=== PATIENT | male | born 1955 | race Caucasian/White ===

== ENCOUNTER 2017-03-18 20:32 | Emergency (ER) | payer OTHER ==
[~2017-03-18 20:32] MED LIST: ASPI1TAB69 PO; ATOR40TA16 PO; CYAN1LOZ BUCCAL; FOLI1TAB4 PO; METH2.5T PO; MISC-289; WARF-20 PO
[2017-03-18 20:38] VITALS: BP 133/72; PULSE 79; RESP 20; O2SAT 99
[2017-03-18] MEDS ORDERED: SODIUM CHLOR 0.9% 1000 ML INJ 1,000 ML IV SCH (20:50)
[2017-03-18] MEDS ORDERED: SODIUM CHLORIDE 0.9% FLUSH 10 ML FLUSH IV FLUSH PRN (21:00)
[2017-03-18] MEDS ORDERED: KETOROLAC TROMETHAMINE 30 MG/ML (IVP) VIAL IVP ONE (21:00)
[2017-03-18] MEDS ORDERED: NYSTAT/DIPHENHY/LIDO MOUTHWASH (Adult) 120ML SWISH-SWAL SCH (21:00)
[2017-03-18] MEDS ORDERED: ASPI81CH CHEW (21:12)
[2017-03-18] MEDS ORDERED: FOLI400T PO (21:12)
[2017-03-18] MEDS ORDERED: CYAN25005 PO (21:12)
[2017-03-18] MEDS ORDERED: METH2.5T PO (21:12)
[2017-03-18] MEDS ORDERED: LIPI20TA PO (21:12)
[2017-03-18] MEDS ORDERED: COUM2.5T PO (21:12)
[2017-03-18 21:15] LABS: AUTOMATED NEUTROPHIL # 7.6 TH/MM3 (1.8-7.7); BASOPHIL # 0.1 TH/MM3 (0-0.2); BASOPHIL % 0.5 % (0.0-2.0); EOSINOPHIL # 0.3 TH/MM3 (0-0.4); EOSINOPHIL % 3.4 % (0.0-4.0); HEMATOCRIT 32.5 % (39.0-51.0); HEMO FLAGS DIFF FINAL; LYMPH % 8.6 % (9.0-44.0); LYMPHOCYTE # 0.8 TH/MM3 (1.0-4.8); MEAN CELL VOLUME 85.5 FL (80.0-100.0); MEAN CORPUSCULAR HEMOGLOBIN 28.3 PG (27.0-34.0); MONO % 8.4 % (0.0-8.0); NEUT % 79.1 % (16.0-70.0); PLATELET COUNT 277 TH/MM3 (150-450); RED BLOOD COUNT 3.79 MIL/MM3 (4.50-5.90); RED CELL DISTRIBUTION WIDTH 14.2 % (11.6-17.2); WHITE BLOOD COUNT 9.6 TH/MM3 (4.0-11.0)
--- NOTE | 2017-03-18 21:19 | RADRPT ---
EXAM DATE/TIME: 03/18/2017 21:06 [facility] COMPARISON: CHEST SINGLE AP, September 23, 2015, 10:52. INDICATIONS : Coughing blood MEDICAL HISTORY : None. Hypotension. Mass on right lung. Kidney stone. Arthritis Lupus SURGICAL HISTORY : None. Cholecystectomy. Cardiac catheterization. Renal stent placement and removal Hernia repair. ENCOUNTER: Initial ACUITY: 4 - 6 months PAIN SCORE: 0/10 LOCATION: chest FINDINGS: A single view of the chest demonstrates the lungs to be symmetrically aerated without evidence of mas s, infiltrate or effusion. The cardiomediastinal contours are unremarkable. Osseous structures are intact. CONCLUSION: No acute disease. Leroy Melo MD on March 18, 2017 at 21:17 Board Certified Radiologist. This report was verified electronically.
--- NOTE | 2017-03-18 21:23 | PD ---
HPI Chief Complaint: GI Complaint Time Seen by Provider: 20:50 Travel History International Travel<30 days: No Contact w/Intl Traveler<30days: No Traveled to known affect area: No History of Present Illness HPI 62-year-old male presents to the emergency department via EMS after hemoptysis. Patient states she was recently seen at [facility] 2 days ago with sore throat and mass in the left anterior neck. Patient states he was placed on Levaquin 500 mg daily for a "pneumonia". Patient states he did not feel short of breath or cough because of something in his lung that felt more like he was choking in his throat from the mass in his neck. He states that the mass has been there "for some time". He has been losing weight over the past several weeks. The pain in his throat is a ache and burn for the patient. He has an obvious mass to the left anterior neck. He denies fever, chills, or other symptoms. Patient is on Coumadin for history of TIA. Patient states he felt that he was choking which made him cough which made him expectorate a large amount of what appeared to be "chunks of meat". He is not short of breath and denies chest pain or abdominal pain at this time. Patient states that [facility] wanted to admit him 2 days ago but he refused as he has a court appearance on this coming that he does not want to miss. He has no known drug allergies. PFSH Past Medical History Hx Anticoagulant Therapy: No Arthritis: Yes (RA) Asthma: No Blood Disorders: No Anxiety: No Depression: No Cancer: No Cardiac Catheterization: Yes Cardiovascular Problems: Yes (heart cath) Chemotherapy: No Chest Pain: Yes COPD: No Cerebrovascular Accident: No Diabetes: No Diminished Hearing: No Endocrine: No Gastrointestinal Disorders: No Glaucoma: No Genitourinary: No Hepatitis: No Hiatal Hernia: No Immune Disorder: No Kidney Stones: Yes (hx of gravel) Musculoskeletal: Yes Neurologic: No Psychiatric: No Reproductive: No Respiratory: Yes (has mass right lung) Integumentary: No Thyroid Disease: No Tetanus Vaccination: > 5 Years Influenza Vaccination: No Past Surgical History Abdominal Surgery: Yes (gall bladder removal) AICD: No Arteriovenous Shunt: No Cardiac Surgery: No Cholecystectomy: Yes Ear Surgery: No Endocrine Surgery: No Eye Surgery: No Genitourinary Surgery: Yes (stents removed bladder to kidney) Gynecologic Surgery: No Insulin Pump: No Joint Replacement: No Oral Surgery: No Pacemaker: No Thoracic Surgery: No Other Surgery: Yes (DOUBLE HERNIA REPAIR) Social History Alcohol Use: No Tobacco Use: No Substance Use: No Allergies-Medications (Allergen,Severity, Reaction): Coded Allergies: No Known Allergies (Verified , 08/02/16) Reported Meds & Prescriptions Reported Meds & Active Scripts Active Reported Aspirin 81 Mg Chew 81 Mg CHEW DAILY Vitamin B12 (Cyanocobalamin (Vitamin B-12)) 2,500 Mcg Tab.chew 5,000 Mcg PO DAILY Lipitor (Atorvastatin Calcium) 20 Mg Tab 20 Mg PO HS Folic Acid 0.4 Mg Tab 1 Mg PO DAILY EXCEPT FRI Methotrexate 2.5 Mg Tab 2.5 Mg PO Q7D Coumadin (Warfarin) 2.5 Mg Tab 2.5 Mg PO DAILY Review of Systems Except as stated in HPI: all other systems reviewed are Neg General / Constitutional: Positive: Weight Loss, No: Fever Eyes: No: Visual changes HENT: Positive: Sore Throat, No: Headaches, Rhinitis, Rhinorrhea, Congestion, Nosebleed, Neck Stiffness, Neck Pain, Ear Discharge, Earache Cardiovascular: No: Chest Pain or Discomfort Respiratory: Positive: Cough, No: Shortness of Breath, Wheezing, Sneezing Gastrointestinal: Positive: Loss of Appetite, No: Nausea, Vomiting, Diarrhea, Abdominal Pain Genitourinary: No: Dysuria Musculoskeletal: No: Pain Skin: No Rash Neurologic: No: Weakness Psychiatric: No: Depression Endocrine: No: Polydipsia Hematologic/Lymphatic: No: Easy Bruising Physical Exam Exam Limitations: Poor Historian, Uncooperative Narrative GENERAL: Patient appears cachectic but in no obvious distress. SKIN: Warm and dry. Normal color. Decreased turgor with mild tenting of the skin. HEAD: Atraumatic. Normocephalic. EYES: Pupils equal and round. No scleral icterus. No injection or drainage. ENT: No nasal bleeding or discharge. Mucous membranes pink and moist. Patient has a whitish firm growth in the left posterior throat with firm smooth tender growth in the left anterior neck consistent with large lymph node. There is not significant erythema. NECK: Trachea midline. Supple. 6 cm x 4 cm oblong firm tender growth in the left anterior neck.. CARDIOVASCULAR: Regular rate and rhythm. RESPIRATORY: No accessory muscle use. Clear to auscultation. Breath sounds equal bilaterally. GASTROINTESTINAL: Abdomen soft, non-tender, nondistended. Hepatic and splenic margins not palpable. MUSCULOSKELETAL: Extremities without clubbing, cyanosis, or edema. No obvious deformities. NEUROLOGICAL: Awake and alert. No obvious cranial nerve deficits. Motor grossly within normal limits. Five out of 5 muscle strength in the arms and legs. Normal speech. PSYCHIATRIC: Appropriate mood and affect; insight and judgment normal. Data Data Last Documented VS Vital Signs Date Time Temp Pulse Resp B/P (MAP) Pulse Ox O2 Delivery O2 Flow Rate FiO2 03/18/17 20:38 79 20 133/72 (92) 99 Orders Orders Complete Blood Count With Diff (03/18/17 20:50) Comprehensive Metabolic Panel (03/18/17 20:50) Lactic Acid (03/18/17 20:50) Prothrombin Time / Inr (Pt) (03/18/17 20:50) Act Partial Throm Time (Ptt) (03/18/17 20:50) Iv Access Insert/Monitor (03/18/17 20:50) Ecg Monitoring (03/18/17 20:50) Oximetry (03/18/17 20:50) NPO (03/18/17 20:50) Sodium Chlor 0.9% 1000 Ml Inj (Ns 1000 M (03/18/17 20:50) Sodium Chloride 0.9% Flush (Ns Flush) (03/18/17 21:00) Electrocardiogram (03/18/17 20:50) Chest, Single Ap (03/18/17 20:50) Ketorolac Inj (Toradol Inj) (03/18/17 21:00) Cjzt-Dark-Mlry Liq (Magic Mouthwash Adul (03/18/17 21:00) Ct Soft Tiss Neck W Iv Cont (03/18/17 ) Ct Thorax/ Chest W Iv Contrast (03/18/17 20:58) Ct Abd/Pel W Iv Contrast(Rout) (03/18/17 20:58) Type And Screen (03/18/17 21:13) Iohexol 350 Inj (Omnipaque 350 Inj) (03/18/17 21:58) Labs Laboratory Tests Test 03/18/17 20:54 White Blood Count 9.6 TH/MM3 Red Blood Count 3.79 MIL/MM3 Hemoglobin 10.7 GM/DL Hematocrit 32.5 % Mean Corpuscular Volume 85.5 FL Mean Corpuscular Hemoglobin 28.3 PG Mean Corpuscular Hemoglobin Concent 33.0 % Red Cell Distribution Width 14.2 % Platelet Count 277 TH/MM3 Mean Platelet Volume 7.1 FL Neutrophils (%) (Auto) 79.1 % Lymphocytes (%) (Auto) 8.6 % Monocytes (%) (Auto) 8.4 % Eosinophils (%) (Auto) 3.4 % Basophils (%) (Auto) 0.5 % Neutrophils # (Auto) 7.6 TH/MM3 Lymphocytes # (Auto) 0.8 TH/MM3 Monocytes # (Auto) 0.8 TH/MM3 Eosinophils # (Auto) 0.3 TH/MM3 Basophils # (Auto) 0.1 TH/MM3 CBC Comment DIFF FINAL Differential Comment Prothrombin Time 44.8 SEC Prothromb Time International Ratio 3.8 RATIO Activated Partial Thromboplast Time 45.8 SEC Blood Urea Nitrogen 51 MG/DL Creatinine 1.32 MG/DL Random Glucose 109 MG/DL Total Protein 6.3 GM/DL Albumin 2.7 GM/DL Calcium Level 9.1 MG/DL Alkaline Phosphatase 66 U/L Aspartate Amino Transf (AST/SGOT) 10 U/L Alanine Aminotransferase (ALT/SGPT) 11 U/L Total Bilirubin 0.6 MG/DL Sodium Level 141 MEQ/L Potassium Level 4.4 MEQ/L Chloride Level 110 MEQ/L Carbon Dioxide Level 27.0 MEQ/L Anion Gap 4 MEQ/L Estimat Glomerular Filtration Rate 55 ML/MIN MDM Medical Decision Making Medical Screen Exam Complete: Yes Emergency Medical Condition: Yes Medical Record Reviewed: Yes Differential Diagnosis Neck abscess. Neck tumor. Pneumonia. Stomach cancer. Hemoptysis. Narrative Course Patient is felt to be medically stable at time of exam. Labs ordered including CBC, CMP, PT PTT and INR, and lactic acid. Type and screen is ordered. EKG is ordered. Chest x-ray is ordered. CT of the soft tissues of the neck with IV contrast as well as CT of the abdomen and pelvis with IV contrast and CT of thorax with IV contrast was ordered. Patient is given a bolus of 1000 mL's normal saline as well as ketorolac 30 mg IV 1 and Magic mouthwash 10 mL was swish and swallow for throat pain. Patient is discussed with Dr. Montgomery who sees the patient as well. CBC shows mild anemia of 10.7 hemoglobin with a hematocrit of 32.5. There is no significant leukocytosis. CMP significant for chloride of 110, anion gap of 4, BUN of 51, creatinine of 1.32, GFR 55, random glucose 109, AST is 10, ALT 11, protein is 6.3, and albumin is 2.7. Alkaline phosphatase is normal at 66. Coagulation studies show a PT of 44.8, and INR 3.8. APTT is 45.8. CT shows a 2 cm x 2.5 cm mass at the base of the left tongue to the oropharynx, as well as a tumor in the left anterior lymph node measuring 2.7 x 3.4 cm. This is discussed with the patient. Findings and labs are discussed with the patient and it is recommended that he stay and be admitted with consult to Dr. Holden of the ear nose and throat doctor pianos and organs salesperson. Call was placed to Dr. Holden at 2300 hrs. The patient was discussed with him, but based on the patient's history is concerned about this being a sentinel bleed in the throat, and he recommended that the patient be transferred to a hospital with an interventional radiologist who couldn't go in and cauterize this lesion prior to an arterial bleed from the throat. This information was passed along to Dr. Montgomery. 2300 hrs. patient care is assumed by Dr. Montgomery who will determine patient's treatment course at this time. Condition: Stable Cuate Childs Mar 18, 2017 21:23
[2017-03-18 21:24] LABS: APTT (PATIENT) 45.8 SEC (24.3-30.1); INTERNATIONAL NORMALIZED RATIO 3.8 RATIO; PROTHROMBIN TIME - PATIENT 44.8 SEC (9.8-11.6)
[2017-03-18 21:25] LABS: ANION GAP 4 MEQ/L (5-15); AST (GOT) 10 U/L (15-37); BLOOD UREA NITROGEN 51 MG/DL (7-18); CHLORIDE 110 MEQ/L (98-107); GLOMERULAR FILTRATION RATE 55 ML/MIN (>89); POTASSIUM 4.4 MEQ/L (3.5-5.1); SODIUM (NA) 141 MEQ/L (136-145)
[2017-03-18 21:28] LABS: ALKALINE PHOSPHATASE 66 U/L (45-117); ALT (GPT) 11 U/L (12-78); TOTAL BILIRUBIN ADULT 0.6 MG/DL (0.2-1.0)
[2017-03-18] MEDS ORDERED: IOHEXOL 350 MG/ML 10 ML VIAL (for RAD DIAG) IVCONTRAST ONE (21:58)
--- NOTE | 2017-03-18 22:12 | RADRPT ---
EXAM DATE/TIME: 03/18/2017 21:48 [facility] COMPARISON: No previous studies available for comparison. INDICATIONS : Left neck mass. IV CONTRAST: 30 cc Omnipaque 350 (iohexol) IV RADIATION DOSE: 13.04 CTDIvol (mGy) MEDICAL HISTORY : Cardiovascular disease. Hypertension. Rheumatoid arthritis. SURGICAL HISTORY : Cholecystectomy. ENCOUNTER: Initial ACUITY: 1 day PAIN SCALE: 6/10 LOCATION: Left neck TECHNIQUE: Volumetric scanning of the neck was performed. Using automated exposure control and adjustment of th e mA and/or kV according to patient size, radiation dose was kept as low as reasonably achievable to obtain optimal diagnostic quality images. DICOM format image data is available electronically for r eview and comparison. FINDINGS: NASOPHARYNX: The nasopharyngeal airway has a normal configuration. No mucosal thickening or mass is seen. OROPHARYNX: There is an ill-defined approximate 2.5 x 2 cm mass in the left side of the oropharynx along the late ral pharynx. There is mass effect on the airway which is deviated to the right. The mass extends from the base of the tongue to the posterior pharyngeal wall and the margins are not well-defined. There is no calcifications in the mass. LARYNX: The supraglottic, glottic, and infraglottic structures are intact. PARAPHARYNGEAL: The parapharyngeal space is intact. SALIVARY GLANDS: The parotid and submandibular glands are intact. LYMPH NODES: There is a large chronic appearing isaiah mass in the left cervical chain measuring up to 3.7 x 3.1 cm in diameter. This accounts for the palpable mass. THYROID: Homogeneous enhancement without evidence of nodule. BONES: Unremarkable. CONCLUSION: 1. The palpable mass corresponds to a large necrotic left cervical chain node. 2. 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 Leroy Melo MD on March 18, 2017 at 22:02 Board Certified Radiologist. This report was verified electronically.
--- NOTE | 2017-03-18 22:16 | RADRPT ---
EXAM DATE/TIME: 03/18/2017 21:53 [facility] COMPARISON: CT ABDOMEN & PELVIS W CONTRAST, July 03, 2013, 8:24. INDICATIONS : Vomiting blood x 3 days. Left neck mass and newly diagnosed apparent head and neck tumor on neck CT. IV CONTRAST: 67 cc Omnipaque 350 (iohexol) IV ; Cumulative dose for multiple exams. ORAL CONTRAST: No oral contrast ingested. RADIATION DOSE: 4.72 CTDIvol (mGy) ; Combined studies - Thorax/Abdomen/Pelvis MEDICAL HISTORY : Cardiovascular disease. Hypertension. Rheumatoid arthritis. SURGICAL HISTORY : Cholecystectomy. ENCOUNTER: Initial ACUITY: 1 day PAIN SCALE: 4/10 LOCATION: Bilateral abdomen TECHNIQUE: Volumetric scanning of the abdomen and pelvis was performed. Using automated exposure control and ad justment of the mA and/or kV according to patient size, radiation dose was kept as low as reasonably achievable to obtain optimal diagnostic quality images. DICOM format image data is available electro nically for review and comparison. FINDINGS: LOWER LUNGS: There is patchy opacity in the anterior right lung base. Please see thorax CT from this date for furt her details. LIVER: Homogeneous density without lesion. There is no dilation of the biliary tree. Status post cholecyste ctomy. SPLEEN: Normal size without lesion. PANCREAS: Within normal limits. KIDNEYS: Normal in size and shape. There is no solid mass, stone or hydronephrosis. There are multiple small apparent bilateral renal cysts again noted. ADRENAL GLANDS: Within normal limits. VASCULAR: There is no aortic aneurysm. BOWEL/MESENTERY: No oral contrast was given limiting the sensitivity of the exam. The stomach, small bowel, and colon demonstrate no acute abnormality. There is no free intraperitoneal air or fluid. ABDOMINAL WALL: Within normal limits. RETROPERITONEUM: There is no lymphadenopathy. BLADDER: No wall thickening or mass. REPRODUCTIVE: Within normal limits. INGUINAL: There is no lymphadenopathy or hernia. There are multiple surgical clips and andrew in the right ing uinal region. MUSCULOSKELETAL: Within normal limits for patient age. CONCLUSION: 1. No evidence of metastatic disease. 2. Small simple appearing cysts in the kidneys. 3. Status post cholecystectomy. 4. Unremarkable bowel gas pattern. Leroy Melo MD on March 18, 2017 at 22:11 Board Certified Radiologist. This report was verified electronically.
--- NOTE | 2017-03-18 22:22 | RADRPT ---
EXAM DATE/TIME: 03/18/2017 21:53 [facility] COMPARISON: CHEST SINGLE AP, March 18, 2017, 21:06. CT THORAX W CONTRAST, July 04, 2013, 16:10. INDICATIONS : Patient with left-sided neck mass and apparent newly diagnosed head and neck cancer on CT. Patient is coughing up blood for 3 days.. IV CONTRAST: 67 cc Omnipaque 350 (iohexol) IV ; Cumulative dose for multiple exams. RADIATION DOSE: 4.72 CTDIvol (mGy) ; Combined studies - Thorax/Abdomen/Pelvis MEDICAL HISTORY : Cardiovascular disease. Hypertension. Rheumatoid arthritis. SURGICAL HISTORY : Cholecystectomy. ENCOUNTER: Initial ACUITY: 1 day PAIN SCALE: 0/10 LOCATION: chest TECHNIQUE: Volumetric scanning of the chest was performed. Using automated exposure control and adjustment of t mA and/or kV according to patient size, radiation dose was kept as low as reasonably achievable to obtain optimal diagnostic quality images. DICOM format image data is available electronically for review and comparison. Follow-up recommendations for detected pulmonary nodules are based at a minimum on nodule size and pa tient risk factors according to Fleischner Society Guidelines. FINDINGS: LUNGS: There is no pneumothorax. There is a stable noncalcified pulmonary nodule in the right upper lobe mary kay suring approximately 8 mm. There is new bronchiectasis in the right lower lobe and right middle lobe with new reticular nodular opacities in both these regions. There is a larger noncalcified nodule in the anterior right lung base measuring approximately by 8 mm. PLEURA: There is no pleural thickening or pleural effusion. MEDIASTINUM: The heart and great vessels demonstrate no acute abnormality. There is no hilar lymphadenopathy. The re are reactive appearing pretracheal and periaortic lymph nodes. AXILLAE: Within normal limits. No lymphadenopathy. SKELETAL: Within normal limits for patient age. MISCELLANEOUS: The visualized upper abdominal organs demonstrate no acute abnormality. CONCLUSION: 1. New bronchiectasis in the right middle lobe and right lower lobe with mild reticular nodule opacit ies which may be infectious or inflammatory. There is a larger 8mm noncalcified nodule now noted in t he right middle lobe which is also new and more nonspecific. 2. Stable 8mm nodule in the right upper lobe which is benign. 3. Reactive appearing pretracheal and periaortic lymph nodes. The findings described above include a newly detected solid pulmonary nodule of 6-8 mm average diamet er. Guidelines from the Fleischner Society for the follow-up and management of newly detected indeter minate pulmonary nodules in persons >34 years old depend on nodule size (average of length and width) and underlying risk factors (including smoking and other risk factors). Please consider the followi ng recommendations after clinical assessment of risk factors. For 6-8 mm nodules: In low risk patients, initial follow-up CT at 6-12 months, then 18-24 months if no change. In high r isk patients, initial follow-up CT at 3-6 months, then 9-12 and 24 months if no change. Leroy Melo MD on March 18, 2017 at 22:15 Board Certified Radiologist. This report was verified electronically.
--- NOTE | 2017-03-18 23:43 | PD ---
Physical Exam Date Seen by Provider: Mar 18, 2017 Time Seen by Provider: 22:50 Narrative GENERAL: Well-developed thin male in no acute distress no respiratory distress SKIN: Warm and dry. HEAD: Normocephalic. EYES: No scleral icterus. No injection or drainage. ENT: Mucous membranes moist large mass identified in the left posterior pharynx, no significant erythema, smooth not irregular, no visible thrombus and no active bleeding; airway is patent NECK: Supple, trachea midline. No JVD left lateral anterior cervical chain lymphadenopathy. CARDIOVASCULAR: Regular rate and rhythm without murmurs, gallops, or rubs. RESPIRATORY: Breath sounds equal bilaterally. No accessory muscle use. Data Data Last Documented VS Vital Signs Date Time Temp Pulse Resp B/P (MAP) Pulse Ox O2 Delivery O2 Flow Rate FiO2 03/19/17 00:29 17 100 03/19/17 00:28 82 Orders Orders Complete Blood Count With Diff (03/18/17 20:50) Comprehensive Metabolic Panel (03/18/17 20:50) Lactic Acid (03/18/17 20:50) Prothrombin Time / Inr (Pt) (03/18/17 20:50) Act Partial Throm Time (Ptt) (03/18/17 20:50) Iv Access Insert/Monitor (03/18/17 20:50) Ecg Monitoring (03/18/17 20:50) Oximetry (03/18/17 20:50) NPO (03/18/17 20:50) Sodium Chlor 0.9% 1000 Ml Inj (Ns 1000 M (03/18/17 20:50) Sodium Chloride 0.9% Flush (Ns Flush) (03/18/17 21:00) Electrocardiogram (03/18/17 20:50) Chest, Single Ap (03/18/17 20:50) Ketorolac Inj (Toradol Inj) (03/18/17 21:00) Oyvw-Evlv-Jcci Liq (Magic Mouthwash Adul (03/18/17 21:00) Ct Soft Tiss Neck W Iv Cont (03/18/17 ) Ct Thorax/ Chest W Iv Contrast (03/18/17 20:58) Ct Abd/Pel W Iv Contrast(Rout) (03/18/17 20:58) Type And Screen (03/18/17 21:13) Iohexol 350 Inj (Omnipaque 350 Inj) (03/18/17 21:58) Radiology Film Requests (03/18/17 ) Blood Product Administration (03/18/17 23:31) Sodium Chlor 0.9% 250 Ml Inj (Ns 250 Ml (03/18/17 23:45) Phytonadione Inj (Vitamin K Inj) (03/18/17 23:45) Fresh Frozen Plasma (Ffp) (03/18/17 23:51) Labs Laboratory Tests Test 03/18/17 20:54 03/18/17 23:50 White Blood Count 9.6 TH/MM3 Red Blood Count 3.79 MIL/MM3 Hemoglobin 10.7 GM/DL Hematocrit 32.5 % Mean Corpuscular Volume 85.5 FL Mean Corpuscular Hemoglobin 28.3 PG Mean Corpuscular Hemoglobin Concent 33.0 % Red Cell Distribution Width 14.2 % Platelet Count 277 TH/MM3 Mean Platelet Volume 7.1 FL Neutrophils (%) (Auto) 79.1 % Lymphocytes (%) (Auto) 8.6 % Monocytes (%) (Auto) 8.4 % Eosinophils (%) (Auto) 3.4 % Basophils (%) (Auto) 0.5 % Neutrophils # (Auto) 7.6 TH/MM3 Lymphocytes # (Auto) 0.8 TH/MM3 Monocytes # (Auto) 0.8 TH/MM3 Eosinophils # (Auto) 0.3 TH/MM3 Basophils # (Auto) 0.1 TH/MM3 CBC Comment DIFF FINAL Differential Comment Prothrombin Time 44.8 SEC Prothromb Time International Ratio 3.8 RATIO Activated Partial Thromboplast Time 45.8 SEC Blood Urea Nitrogen 51 MG/DL Creatinine 1.32 MG/DL Random Glucose 109 MG/DL Total Protein 6.3 GM/DL Albumin 2.7 GM/DL Calcium Level 9.1 MG/DL Alkaline Phosphatase 66 U/L Aspartate Amino Transf (AST/SGOT) 10 U/L Alanine Aminotransferase (ALT/SGPT) 11 U/L Total Bilirubin 0.6 MG/DL Sodium Level 141 MEQ/L Potassium Level 4.4 MEQ/L Chloride Level 110 MEQ/L Carbon Dioxide Level 27.0 MEQ/L Anion Gap 4 MEQ/L Estimat Glomerular Filtration Rate 55 ML/MIN Lactic Acid Level 0.8 mmol/L [facility] Medical Record Reviewed: Yes Supervised Visit with LESTER: Yes Interpretation(s) INR: 3.[address] 03/18/172057 Signed Impressions: Service Date/Time: Saturday, March 18, 2017 21:53 - CONCLUSION: 1. New bronchiectasis in the right middle lobe and right lower lobe with mild reticular nodule opacities which may be infectious or inflammatory. There is a larger 8mm noncalcified nodule now noted in the right middle lobe which is also new and more nonspecific. 2. Stable 8mm nodule in the right upper lobe which is benign. 3. Reactive appearing pretracheal and periaortic lymph nodes. The findings described above include a newly detected solid pulmonary nodule of 6-8 mm average diameter. Guidelines from the [employer] Society for the follow-up and management of newly detected indeterminate pulmonary nodules in persons >34 years old depend on nodule size (average of length and width) and underlying risk factors (including smoking and other risk factors). Please consider the following recommendations after clinical assessment of risk factors. For 6-8 mm nodules: In low risk patients, initial follow-up CT at 6-12 months, then 18- 24 months if no change. In high risk patients, initial follow-up CT at 3-6 months , then 9-12 and 24 months if no change. Leroy Melo MD Abdomen/Pelvis CT 03/18/172057 Signed Impressions: Service Date/Time: Saturday, March 18, 2017 21:53 - CONCLUSION: 1. No evidence of metastatic disease. 2. Small simple appearing cysts in the kidneys. 3. Status post cholecystectomy. 4. Unremarkable bowel gas pattern. Leroy Melo MD Chest X-Ray 03/18/172049 Signed Impressions: Service Date/Time: Saturday, March 18, 2017 21:06 - CONCLUSION: No acute disease. Leroy Melo MD Neck CT 03/18/17 0000 Signed Impressions: Service Date/Time: Saturday, March 18, 2017 21:48 - CONCLUSION: 1. The palpable mass corresponds to a large necrotic left cervical chain node. 2. Ill-defined mass in the left side of the oral pharynx most characteristic of a primary head and neck tumor. Leroy Melo MD CBC & BMP Diagram 03/18/17 20:54 Total Protein 6.3 L, Albumin 2.7 L, Calcium Level 9.1, Alkaline Phosphatase 66, Aspartate Amino Transf (AST/SGOT) 10 L, Alanine Aminotransferase (ALT/SGPT) 11 L , Total Bilirubin 0.6 Vital Signs Date Time Temp Pulse Resp B/P (MAP) Pulse Ox O2 Delivery O2 Flow Rate FiO2 03/19/17 00:29 17 100 03/19/17 00:28 82 123/68 (86) 121/59 (79) 154/81 (105) 03/18/17 20:38 79 20 133/72 (92) 99 Differential Diagnosis Mass, abscess, coagulopathy Narrative Course 62-year-old male on Coumadin therapy for history of TIA with 1 month of coughing up blood and history of previous tobacco use of chewing tobacco was initially seen at for the hospital on late Sunday evening and diagnosed at that time with 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 No active bleeding at this time. With stable range vital signs initial hemoglobin of 10.7 and INR of 3.8 on Sunday INR was 2.9. No bleeding; last coumadin 7 PM Sunday discussed with Dr Holden --- send to [facility] --unable to manage/ bx w / IR here Patient and spouse aware of recommendation; agree to transfer ---transfer confirmed with ENT Dr Holden at [facility] Physician Communication Physician Communication discussed with Dr Holden send to [facility] for sentinel bleed; discussed with Dr Holden --[facility] will accept in transfer Diagnosis Primary Impression: Oropharyngeal mass Additional Impressions: Bleeding on Coumadin H/O: CVA (cerebrovascular accident) Disposition: 70 TRANSFER TO OTHER FACILITY ([facility] ENT Dr Holden) Condition: Stable Pascale Montgomery MD Mar 18, 2017 23:43
[2017-03-18] MEDS ORDERED: PHYTONADIONE 10 MG/ML VIAL SQ ONE (23:45)
[2017-03-18] MEDS ORDERED: SODIUM CHLOR 0.9% 250 ML INJ 250 ML IV ONE (23:45)
[2017-03-19 00:28] VITALS: BP_SYST 121; BP_SYST 123; BP_SYST 154; BP_DIAS 59; BP_DIAS 68; BP_DIAS 81; PULSE 82
[2017-03-19 00:29] VITALS: RESP 17; O2SAT 100
[2017-03-19 02:04] VITALS: BP 90/51; PULSE 51; O2SAT 94
--- NOTE | 2017-03-19 20:03 | EKG ---
Date Performed: 03/19/2017 Time Performed: 02:16:05 PTAGE: 62 years EKG: SINUS BRADYCARDIA POSSIBLE RIGHT VENTRICULAR CONDUCTION DELAY LEFT ANTERIOR FASCICULAR BLOC K ABNORMAL ECG PREVIOUS TRACING : 07/04/2016 16.28 DOCTOR: Lashaun Rg Interpretating Date/Time 03/19/2017 20:01:55
== END 2017-03-19 03:02 | disposition short-term general hospital (02) ==
LOC: NEPC 20:32
DX: J39.2 Other diseases of pharynx (principal); N28.1 Cyst of kidney, acquired; M06.9 Rheumatoid arthritis, unspecified; R00.1 Bradycardia, unspecified; I44.4 Left anterior fascicular block; R94.31 Abnormal electrocardiogram [ECG] [EKG]; Z86.73 Personal history of transient ischemic attack (TIA), and cerebral infarction without residual deficits; Z79.01 Long term (current) use of anticoagulants; Z79.82 Long term (current) use of aspirin
CPT/HCPCS: 70491; 71010; 71260; 74177; 80053; 83605; 85025; 85610; 85730; 86850; 86900; 86901; 86927; 93005; 96374; 99285; J1885; J7030; Q9967